=== PATIENT | male | born 1945 | race Asian ===

== ENCOUNTER 2021-05-08 07:01 | Inpatient (IN) | payer MEDICAID ==
[2021-05-02 14:22] LABS: BASOPHILS % (AUTO) 0.6 % (0-1); EOSINOPHILS # (AUTO) 0.1 X10'3 (0-0.9); LYMPHOCYTES % (AUTO) 42.6 % (21-51); MEAN CORPUSCULAR HEMOGLOBIN 29.4 PG (27.0-31.0); MEAN CORPUSCULAR HGB CONC 33.1 g/dL (33.0-36.5); MEAN CORPUSCULAR VOLUME 88.9 FL (78-98); MEAN PLATELET VOLUME 9.6 FL (7.4-10.4); MONOCYTES # (AUTO) 0.3 X10'3 (0-0.9); MONOCYTES % (AUTO) 6.2 % (2-12); NEUTROPHILS # (AUTO) 2.3 X10'3 (1.8-7.7); NEUTROPHILS % (AUTO) 47.6 % (42-75); PRE OP HEMATOCRIT 35.6 % (42.0-52.0); PRE OP HEMOGLOBIN 11.8 g/dL (14.0-17.9); PRE OP PLATELET COUNT 163 X10'3 (140-440); RED BLOOD COUNT 4.01 X10'6 (4.70-6.10); RED CELL DISTRIBUTION WIDTH 17.4 % (11.5-14.5)
[2021-05-02 14:36] LABS: ALBUMIN/GLOBULIN RATIO 0.9 (1.1-1.5); ALKALINE PHOSPHATASE 63 IU/L (46-116); BLOOD UREA NITROGEN 33 MG/DL (7-18); BUN/CREATININE RATIO 15.1 (5.4-32.0); CALCIUM 9.5 MG/DL (8.5-10.1); CHLORIDE 104 MMOL/L (99-107); CREATININE 2.18 MG/DL (0.60-1.10); HEMOGLOBIN A1C 6.1 % (4.5-6.2); PRE OP ALT 21 U/L (30-65); PRE OP ANION GAP 12 (8-16); PRE OP AST 15 U/L (10-37); PRE OP BILIRUB, TOTAL 0.3 MG/DL (0.0-1.0); PRE OP GLUCOSE 136 MG/DL (70-104); PRE OP SODIUM 142 MMOL/L (135-145); TOTAL CARBON DIOXIDE 25.7 MMOL/L (24-32); TOTAL PROTEIN 8.5 G/DL (6.4-8.2); eGFR 29 ML/MIN
[2021-05-02 14:38] LABS: PRE OP POTASSIUM 3.2 MMOL/L (3.4-5.1)
[~2021-05-08] VITALS: Ht 167.6 cm; Wt 90.7 kg
[2021-05-08] VITALS (16 sets, daily range): BP systolic 100–136; BP diastolic 56–79
[~2021-05-08 07:01] MED LIST: ALLO100T PO; AMLO2.5T2 PO; BITTER MELON PO; CHOL50004 PO; DICL20GE TOP; DOXA4TAB2 PO; FURO-149 PO; KETO5DRO11 EACHEYE; LOSA50TA3 PO; MULT-1074 PO; NITR0.4T SL; TURM500C4 PO; UBID200C37 PO; cefazolin/dext.iso 2gm/100ml IV ONE; famotidine 20mg tablet PO ONE; ringers solution, lacted 1,000 ML IV SCH; tranexamic acid 1gm/0.7% sal. 100 ML IV ONE; vancomycin 1,500 MG in NS 300ml IV soln IV ONE
[2021-05-08 08:32] LABS: ISTAT CREATININE 2.2 mg/dL (0.8-1.3); ISTAT HGB 12.9 g/dl (14.0-18.0); ISTAT IONIZED CALCIUM 1.3 mmol/L (1.03-1.32); ISTAT K 3.7 mmol/L (3.5-5.1); POC BUN/CREATININE RATIO 15.5 (5.4-32.0)
[2021-05-08] MEDS ORDERED: ROPIVAcaine 0.5% (5mg/ml) 30ml vial ONE ×2 (10:14→12:43)
[2021-05-08] MEDS ORDERED: ketorolac trometh. 30mg/ml inj. ONE ×2 (10:14→10:41)
[2021-05-08] MEDS ORDERED: fentaNYL/PF 50MCG/1 ML 2ML syringe ONE (10:44)
[2021-05-08] MEDS ORDERED: MIDAZolam 1 MG/ML 5ML VIAL ONE (10:44)
--- NOTE | 2021-05-08 11:33 | NUR ---
PEPCID WAS SCANNED AND ADMINISTERED IN PAS UNIT ORDERED. MEDICATION DIDNT SAVE IN EMAR AFTER IT WAS SCANNED.
[2021-05-08] MEDS ORDERED: dexamethasone sod phosphate 4mg/ml inj. ONE (12:43)
[2021-05-08] MEDS ORDERED: ROPIVAcaine 0.2% (10 MG/5 ML) BOLUS INJECTION ADDCANAL PRN (12:50)
[2021-05-08] MEDS ORDERED: morphine 2 MG/ML inj. syringe IV PRN ×2 (12:50)
[2021-05-08] MEDS ORDERED: morphine 4 MG/ML inj SYRINge IV PRN ×2 (12:50)
[2021-05-08] MEDS ORDERED: ondansetron/PF 4mg/2ml inj IV PRN ×3 (12:50→13:30)
[2021-05-08] MEDS ORDERED: meperidine/PF 25mg/ml syringe IV PRN ×6 (12:50)
[2021-05-08] MEDS ORDERED: ringers solution, lacted 1,000 ML IV SCH ×2 (12:50)
[2021-05-08] MEDS ORDERED: proCHLORperazine 10 MG/2 ml inj IV PRN ×2 (12:50)
[2021-05-08] MEDS ORDERED: ROPIVAcaine 0.2%/PF PUMP/bolus 545 ML ADDCANAL SCH (12:50)
--- NOTE | 2021-05-08 13:25 | NUR ---
ADMITTED TO PACU FROM OR ACCOMPANIED BY ANESTHESIA. INTIAL PHYSICAL ASSESSMENT DONE AND RECORDED. REPORT RECEIVED FROM ANESTHESIA.
[2021-05-08] MEDS ORDERED: HYDROmorphone inj. 0.5 MG/0.5 ML DISP.SYRIN IV PRN (13:30)
[2021-05-08] MEDS ORDERED: nitroGLYCERIN 0.4mg SUBLingual tab SL SCH (13:30)
[2021-05-08] MEDS ORDERED: DICLOFENAC SODIUM TOP PRN (13:30)
[2021-05-08] MEDS ORDERED: acetaminophen 325mg tablet PO PRN (13:30)
[2021-05-08] MEDS ORDERED: bisacodyl 10mg suppository rectal RC PRN (13:30)
[2021-05-08] MEDS ORDERED: HYDROcodone/acetaminophen 10/325mg tab PO PRN (13:30)
[2021-05-08] MEDS ORDERED: HYDROmorphone 1 mg/ml syringe IV PRN (13:30)
[2021-05-08] MEDS ORDERED: magnesium hydroxide 30ml (MOM) UD suspension PO PRN (13:30)
[2021-05-08] MEDS ORDERED: diphenhydrAMINE 25mg capsule PO PRN ×2 (13:30)
--- NOTE | 2021-05-08 14:30 | NUR ---
PACU DISCHARGE CRITERIA MET, REPORT GIVEN TO FLOOR. DENIES PAIN OR DISCOMFORT. PT IS STABLE AND ADEQUATELY RECOVERED FROM ANESTHESIA. PT HAS STABLE AIRWAY PATENCY, RESPIRATORY FUNCTION TO INCLUDE RESPIRATORY RATE AND O2 SAT. HEART RATE, BLOOD PRESSURE STABLE AND HYDRATION ADEQUATE. MENTAL STATUS IS APPROPRIATE. PAIN AND NAUSEA CONTROLLED. REFER TO PACU SPREADSHEET FOR VITAL SIGNS.
[2021-05-08] MEDS: potassium cl 20mEq in 1/2 NS 1,000 ML IV SCH ×2 (15:55→23:47)
[2021-05-08] MEDS: HYDROcodone/acetaminophen 10/325mg tab PO PRN (15:55)
[2021-05-08] MEDS: ceFAZolin/D5W- 1GM premix 50 ML IV SCH ×2 (17:22→23:49)
--- NOTE | 2021-05-08 18:30 | NUR ---
Patient in room ORTHO 4009. I have received report from ANGELA CONTRERAS and had the opportunity to ask questions and assume patient care.
[2021-05-08] MEDS ORDERED: doxazosin mesylate 2mg tablet PO SCH (21:00)
[2021-05-08] MEDS ORDERED: sennosides 8.6mg tablet PO SCH (21:00)
[2021-05-08] MEDS ORDERED: TURMERIC PO SCH (21:00)
[2021-05-08] MEDS ORDERED: TURMERIC ROOT EXTRACT PO SCH (21:00)
[2021-05-09 02:00] VITALS: BP 112/58
[2021-05-09] MEDS: HYDROcodone/acetaminophen 10/325mg tab PO PRN (05:20)
[2021-05-09] MEDS: potassium cl 20mEq in 1/2 NS 1,000 ML IV SCH (05:30)
[2021-05-09 06:00] VITALS: BP 131/72
--- NOTE | 2021-05-09 06:36 | NUR ---
Problems reprioritized. Patient report given, questions answered & plan of care reviewed with ANGELA MARIE.
--- NOTE | 2021-05-09 06:40 | NUR ---
Problems reprioritized. Patient report given, questions answered & plan of care reviewed with ANGELA MARIE.
--- NOTE | 2021-05-09 06:50 | NUR ---
Patient in room ORTHO 4009. I have received report from Johanna MILLER and had the opportunity to ask questions and assume patient care.
[2021-05-09 07:13] LABS: BASOPHILS % (AUTO) 0.2 % (0-1); EOSINOPHILS % (AUTO) 0.1 % (0-6); HEMATOCRIT 29.2 % (42.0-52.0); HEMOGLOBIN 9.8 g/dl (14.0-17.9); LYMPHOCYTES # (AUTO) 2.4 X10'3 (1.1-4.8); LYMPHOCYTES % (AUTO) 25.6 % (21-51); MEAN CORPUSCULAR HEMOGLOBIN 29.7 PG (27.0-31.0); MEAN CORPUSCULAR HGB CONC 33.6 g/dL (33.0-36.5); MEAN CORPUSCULAR VOLUME 88.4 FL (78-98); MEAN PLATELET VOLUME 9.3 FL (7.4-10.4); MONOCYTES # (AUTO) 0.6 X10'3 (0-0.9); MONOCYTES % (AUTO) 6.9 % (2-12); NEUTROPHILS # (AUTO) 6.3 X10'3 (1.8-7.7); NEUTROPHILS % (AUTO) 67.2 % (42-75); PLATELET COUNT 146 X10'3 (140-440); RED CELL DISTRIBUTION WIDTH 17.2 % (11.5-14.5); WHITE BLOOD COUNT 9.3 X10'3 (4.5-11.0)
[2021-05-09] MEDS ORDERED: amLODIPine 5mg tablet PO SCH (08:00)
[2021-05-09] MEDS ORDERED: BITTER MELON PO SCH (08:00)
[2021-05-09] MEDS ORDERED: ketorolac tromethamine 0.5% ophthalmic drops EACHEYE SCH (08:00)
[2021-05-09] MEDS ORDERED: losartan 50mg tablet PO SCH (08:00)
[2021-05-09] MEDS ORDERED: non-formulary drug (Ubidecarenone (Co Q10) 200 MG) PO SCH (08:00)
[2021-05-09] MEDS ORDERED: cholecalciferol (vitamin D3) 1,000 unit (25mcg) tablet PO SCH (08:00)
[2021-05-09] MEDS ORDERED: furosemide 40mg tablet PO SCH (08:00)
[2021-05-09] MEDS ORDERED: allopurinol 100mg tablet PO SCH (08:00)
[2021-05-09] MEDS ORDERED: multivitamins, therapeutics tablet PO SCH (08:00)
[2021-05-09 08:23] LABS: ANION GAP 11 (8-16); CHLORIDE 110 MMOL/L (99-107); POTASSIUM 4.1 MMOL/L (3.5-5.1); SODIUM 143 MMOL/L (135-145); TOTAL CARBON DIOXIDE 21.7 MMOL/L (24-32)
[2021-05-09] MEDS ORDERED: aspirin 325mg tablet PO SCH (08:30)
[2021-05-09 10:00] VITALS: BP 129/68
--- NOTE | 2021-05-09 11:34 | NUR ---
Joint surgery consult: Pt s/p R knee surgery this admit. Written high protein ed w/ RD contact information placed in pt chart. Addendum: 05/09/21 at [address] Amended: Links added.
[2021-05-09] MEDS ORDERED: ASPI-1 PO (11:43)
--- NOTE | 2021-05-09 12:15 | NUR ---
pt discharged [facility] at 1216. Knee compression applied with Island dressing. Dressing is C/D/I. Pt belonging sent with pt. Iv removed no complications. All questions reviewed/ answered. Pt discharged in stable condition in private vehicle to home
== END 2021-05-09 12:10 | disposition home or self-care (01) | DRG 302 ==
LOC: PAS IN 07:01 → UNDOADMIN 07:01 → PAS IN 13:30 → ORTHO 4S 14:45 → UNDODISIN 05-09 12:10
PROVIDERS: ADMIT Orthopaedic Surgery; ATTEND Orthopaedic Surgery
PROC: 8E0YXBZ Computer Assisted Procedure of Lower Extremity (ICD-10-PCS; 2021-05-08)
PROC: 8E0Y0CZ Robotic Assisted Procedure of Lower Extremity, Open Approach (ICD-10-PCS; 2021-05-08)
PROC: 3E0T3BZ Introduction of Anesthetic Agent into Peripheral Nerves and Plexi, Percutaneous Approach (ICD-10-PCS; 2021-05-08)
PROC: 3E0T33Z Introduction of Anti-inflammatory into Peripheral Nerves and Plexi, Percutaneous Approach (ICD-10-PCS; 2021-05-08)
PROC: 0SRC0J9 Replacement of Right Knee Joint with Synthetic Substitute, Cemented, Open Approach (ICD-10-PCS; principal; 2021-05-08 10:45)
DX: M17.11 Unilateral primary osteoarthritis, right knee (principal); D62 Acute posthemorrhagic anemia; M25.561 Pain in right knee; Z79.899 Other long term (current) drug therapy
CPT/HCPCS: 36415; 80047; 80051; 80053; 83036; 85025; 87081; 97116; 97161; 97530; A4215; A7000; C1713; C1758; C1776; G0378; J0690; J1100; J1885; J2250; J2795; J3010; J3370; J3480; J7040; J7120; U0003; U0005